=== PATIENT | female | born 1955 | race Caucasian/White ===

== ENCOUNTER 2021-11-28 07:15 | Inpatient (IN) | payer MEDICARE ==
[~2021-11-28] VITALS: Ht 162.6 cm; Wt 124.5 kg
[2021-11-28 08:17] LABS: BILIRUBIN 2+ mg/dL (NEGATIVE); BLOOD NEGATIVE Ery/uL (NEGATIVE); GLUCOSE (U) NORMAL (NORMAL); LEUKOCYTES NEGATIVE Leu/uL (NEGATIVE); NITRITE POSITIVE (NEGATIVE); PROTEIN TRACE (LOW) mg/dL (NEGATIVE); SPECIFIC GRAVITY >=1.030 (1.001-1.030); pH 5.5 (5.0-9.0)
[2021-11-28 08:22] LABS: AMPHETAMINES NEGATIVE (NEGATIVE); BARBITURATES NEGATIVE (NEGATIVE); CLARITY CLOUDY (CLEAR); COLOR AMBER (YELLOW); ECSTASY (MDMA) NEGATIVE (NEGATIVE); MARIJUANA (THC) NEGATIVE (NEGATIVE); METHADONE NEGATIVE (NEGATIVE); OPIATES NEGATIVE (NEGATIVE); OXYCODONE NEGATIVE (NEGATIVE)
[2021-11-28 08:40] LABS: BACTERIA 1+; MUCOUS LARGE; URINARY WBC RARE
[2021-11-28 08:59] LABS: BASOPHIL 0.1 % (0-2); EOSINOPHIL 0.4 % (0-7); HGB 13.2 g/dl (12.5-16.0); MCH 30.8 pg (25.0-31.0); MCV 93.5 fL (78.0-100.0); MONOCYTE 11.9 % (0-12); MPV 9.6 fL (6.0-9.5); NEUTROPHIL 76.9 % (41-80); NRBC 0.1; PLT 139 K/uL (150-400); RBC 4.28 M/uL (4.20-5.40); RDW 14.4 % (11.5-14.0); WBC 13.6 K/uL (4.0-10.5)
[2021-11-28 09:25] LABS: LACTIC ACID 4.7 mmol/L (0.4-1.9)
[2021-11-28 09:49] LABS: ALBUMIN 2.8 g/dL (3.4-5.0); BUN/CREAT RATIO (CALC) 32.9 RATIO; CREATININE 0.76 mg/dL (0.51-0.95); GLOBULIN (CALCULATION) 4.4 g/dL; POTASSIUM 3.9 mmol/L (3.5-5.1); TOTAL PROTEIN 7.2 g/dL (6.4-8.2)
[2021-11-28] MEDS ORDERED: SYNTHROID88 MCG PO (18:22)
[2021-11-28] MEDS ORDERED: AMARYL4 MG PO (18:22)
[2021-11-28] MEDS ORDERED: METFORMIN HCL500 MG PO (18:24)
[2021-11-28] MEDS ORDERED: LIPITOR 10MG TA10 MG PO (18:25)
[2021-11-28] MEDS ORDERED: MELOXICAM15 MG PO (18:26)
[2021-11-28] MEDS ORDERED: LEVOCETIRIZINE D5 MG PO (18:28)
[2021-11-28] MEDS ORDERED: LISINOPRIL-HCT1 EAC1 PO (18:29)
[2021-11-28] MEDS ORDERED: NORVASC5 MG PO (18:30)
[2021-11-29 05:58] LABS: BASOPHIL 0.7 % (0-2); EOSINOPHIL 1.5 % (0-7); HCT 38.2 % (37.0-47.0); HGB 12.9 g/dl (12.5-16.0); LYMPHOCYTE 12.9 % (15-48); MCH 30.6 pg (25.0-31.0); MCHC 33.8 g/dL (32.0-36.0); MCV 90.7 fL (78.0-100.0); MPV 9.3 fL (6.0-9.5); NEUTROPHIL 69.8 % (41-80); NRBC 0; PLT 116 K/uL (150-400); RBC 4.21 M/uL (4.20-5.40); RDW 14.5 % (11.5-14.0); RETICULOCYTE COUNT 2.2 % (1.0-2.0); WBC 9.4 K/uL (4.0-10.5)
[2021-11-29 06:39] LABS: IRON % SATURATION 36.9 %SAT (20-50)
[2021-11-29 07:24] LABS: ALBUMIN 2.6 g/dL (3.4-5.0); BILIRUBIN - TOTAL 1.7 mg/dL (0.2-1.0); BUN/CREAT RATIO (CALC) 31.7 RATIO; CREATININE 0.6 mg/dL (0.51-0.95); FOLIC ACID (SERUM) 19.7 ng/mL (8.6-58.9); GLOBULIN (CALCULATION) 3.9 g/dL; PHOSPHORUS 2.5 mg/dL (2.6-4.7); POTASSIUM 3.9 mmol/L (3.5-5.1); TOTAL PROTEIN 6.5 g/dL (6.4-8.2)
[2021-11-30 07:37] LABS: ALBUMIN 2.3 g/dL (3.4-5.0); BILIRUBIN - TOTAL 1.5 mg/dL (0.2-1.0); BUN/CREAT RATIO (CALC) 24.1 RATIO; CREATININE 0.79 mg/dL (0.51-0.95); GLOBULIN (CALCULATION) 3.7 g/dL; POTASSIUM 3.4 mmol/L (3.5-5.1)
[2021-11-30 07:39] LABS: BASOPHIL 0.6 % (0-2); EOSINOPHIL 2.2 % (0-7); HCT 38.4 % (37.0-47.0); HGB 12.4 g/dl (12.5-16.0); LYMPHOCYTE 14.9 % (15-48); MCH 30.2 pg (25.0-31.0); MCHC 32.3 g/dL (32.0-36.0); MCV 93.4 fL (78.0-100.0); MONOCYTE 14.8 % (0-12); NEUTROPHIL 66.1 % (41-80); NRBC 0.2; PLT 109 K/uL (150-400); RBC 4.11 M/uL (4.20-5.40); RDW 14.7 % (11.5-14.0); WBC 10.8 K/uL (4.0-10.5)
--- NOTE | 2021-11-30 19:03 | NUR ---
COLMENARES PLACED AT 1745, 1600 ML OUTPUT UPON INSERTION, NO C/O PAIN OR DISCOMFORT WITH INSERTION. TEA COLORED URINE.
[2021-12-01 00:36] LABS: BILIRUBIN NEGATIVE (NEGATIVE); BLOOD TRACE-INTACT Ery/uL (NEGATIVE); CLARITY CLEAR (CLEAR); COLOR YELLOW (YELLOW); GLUCOSE (U) NORMAL (NORMAL); LEUKOCYTES NEGATIVE Leu/uL (NEGATIVE); NITRITE NEGATIVE (NEGATIVE); PROTEIN NEGATIVE (NEGATIVE); SPECIFIC GRAVITY 1.015 (1.001-1.030); UROBILINOGEN 0.2 mg/dL (0.2-1.0)
[2021-12-01 00:45] LABS: BACTERIA 2+; URINARY RBC RARE
[2021-12-01 00:46] LABS: AMORPHOUS URATES CRYSTALS MODERATE; YEAST PRESENT
[2021-12-01 05:58] LABS: BASOPHIL 0.4 % (0-2); EOSINOPHIL 2.9 % (0-7); HCT 31.7 % (37.0-47.0); HGB 10.6 g/dl (12.5-16.0); LYMPHOCYTE 21.6 % (15-48); MCHC 33.4 g/dL (32.0-36.0); MCV 92.7 fL (78.0-100.0); MONOCYTE 12.9 % (0-12); MPV 9.4 fL (6.0-9.5); NEUTROPHIL 60.9 % (41-80); NRBC 0.3; RBC 3.42 M/uL (4.20-5.40); RDW 14.9 % (11.5-14.0); WBC 6.9 K/uL (4.0-10.5)
[2021-12-01 06:03] LABS: PLT 82 K/uL (150-400)
[2021-12-01 06:13] LABS: BUN/CREAT RATIO (CALC) 21.6 RATIO; CREATININE 0.97 mg/dL (0.51-0.95); GLOBULIN (CALCULATION) 3.1 g/dL; POTASSIUM 2.8 mmol/L (3.5-5.1); TOTAL PROTEIN 5.1 g/dL (6.4-8.2)
[2021-12-02 05:44] LABS: BASOPHIL 0.7 % (0-2); EOSINOPHIL 2.8 % (0-7); HCT 31.1 % (37.0-47.0); HGB 10.5 g/dl (12.5-16.0); LYMPHOCYTE 16.4 % (15-48); MCH 31.3 pg (25.0-31.0); MCHC 33.8 g/dL (32.0-36.0); MCV 92.6 fL (78.0-100.0); MONOCYTE 13.1 % (0-12); MPV 9.5 fL (6.0-9.5); NEUTROPHIL 65.3 % (41-80); NRBC 0; PLT 110 K/uL (150-400); RBC 3.36 M/uL (4.20-5.40); RDW 14.7 % (11.5-14.0); WBC 7.5 K/uL (4.0-10.5)
[2021-12-02 06:08] LABS: ALBUMIN 2.1 g/dL (3.4-5.0); BILIRUBIN - TOTAL 0.9 mg/dL (0.2-1.0); BUN/CREAT RATIO (CALC) 22.4 RATIO; CREATININE 0.76 mg/dL (0.51-0.95); GLOBULIN (CALCULATION) 3.3 g/dL; POTASSIUM 3.3 mmol/L (3.5-5.1); TOTAL PROTEIN 5.4 g/dL (6.4-8.2)
[2021-12-03 05:58] LABS: BASOPHIL 0.6 % (0-2); EOSINOPHIL 2.9 % (0-7); HCT 30.9 % (37.0-47.0); HGB 10.4 g/dl (12.5-16.0); LYMPHOCYTE 17.8 % (15-48); MCH 30.8 pg (25.0-31.0); MCHC 33.7 g/dL (32.0-36.0); MCV 91.4 fL (78.0-100.0); MONOCYTE 13.6 % (0-12); MPV 9.4 fL (6.0-9.5); NEUTROPHIL 62.7 % (41-80); NRBC 0; PLT 105 K/uL (150-400); RBC 3.38 M/uL (4.20-5.40); RDW 14.7 % (11.5-14.0); WBC 6.2 K/uL (4.0-10.5)
[2021-12-03 06:01] LABS: BUN/CREAT RATIO (CALC) 22.2 RATIO; CREATININE 0.63 mg/dL (0.51-0.95); POTASSIUM 3.4 mmol/L (3.5-5.1)
[2021-12-03] MEDS ORDERED: VANCOCIN HCL125 MG PO (08:14)
[2021-12-03] MEDS ORDERED: POTASSIUM CHLO20 ME1 PO (08:18)
== END 2021-12-03 11:55 | disposition home or self-care (01) | DRG 871 ==
LOC: FER 07:15 → FTCU 13:43 → FER 16:09 → FTCU 12-03 11:55
PROVIDERS: Emergency Medicine; Internal Medicine; ADMIT Internal Medicine
DX: A41.4 Sepsis due to anaerobes (principal); G93.41 Metabolic encephalopathy; A04.72 Enterocolitis due to Clostridium difficile, not specified as recurrent; K76.6 Portal hypertension; E87.2 Acidosis; A41.89 Other specified sepsis; R65.20 Severe sepsis without septic shock; Z20.822 Contact with and (suspected) exposure to COVID-19; K74.60 Unspecified cirrhosis of liver; E86.0 Dehydration; K80.20 Calculus of gallbladder without cholecystitis without obstruction; E87.6 Hypokalemia; D64.9 Anemia, unspecified; K72.90 Hepatic failure, unspecified without coma; I10 Essential (primary) hypertension; E03.9 Hypothyroidism, unspecified; E78.5 Hyperlipidemia, unspecified; R33.9 Retention of urine, unspecified; E11.9 Type 2 diabetes mellitus without complications; K76.0 Fatty (change of) liver, not elsewhere classified; K75.81 Nonalcoholic steatohepatitis (NASH); Z82.49 Family history of ischemic heart disease and other diseases of the circulatory system; Z79.84 Long term (current) use of oral hypoglycemic drugs; Z79.899 Other long term (current) drug therapy
CPT/HCPCS: 36415; 70450; 70551; 71045; 80048; 80053; 80305; 81001; 82140; 82607; 82746; 82962; 83540; 83550; 83605; 83735; 83880; 84100; 84132; 84145; 84443; 84484; 85025; 87045; 87046; 87205; 87324; 87449; 87493; 94010; 97116; 97161; 97165; 97535; J1650; J3370; J7030; Q9967; U0002